=== PATIENT | male | born 1955 | race Caucasian/White ===

== ENCOUNTER 2018-07-02 08:05 | Outpatient (CLI) | payer BC ==
[2018-07-02 08:22] LABS: #Basophils 0.1 thou/uL (0.0-0.2); #Eosinphils 0.3 thou/uL (0.0-0.7); #Lymphocytes 3.1 thou/uL (1.20-3.40); #Monocytes 0.8 thou/uL (0.11-0.59); #Neutrophils 2.7 thou/uL (1.40-6.50); %Basophils 0.7 % (0.0-1.0); %Eosinophils 4.7 % (0.0-10.0); %Lymphocytes 44.7 % (21.0-51.0); %Monocytes 11.1 % (0.0-10.0); %Neutrophils 38.8 % (42.0-75.0); Hemoglobin 14.1 g/dL (14.0-18.0); Mean Corpuscular HGB CONC 32.8 g/dL (32.0-36.0); Mean Corpuscular Hemoglobin 32.1 pg (27.0-31.0); Mean Platelet Volume 8.2 fL (7.4-10.4); Platelet Count 321 thou/uL (130-400); RBC Distribution Width 11.6 % (11.5-14.5); Red Blood Cell (RBC) Count 4.38 mill/uL (4.70-6.10)
[2018-07-02 08:51] LABS: ALT (SGPT) 22 U/L (8-55); AST (SGOT) 21 U/L (5-34); Albumin 4.1 g/dL (3.4-4.8); Alkaline Phosphatase 72 U/L (40-150); Anion Gap 11 mmol/L (10-20); BUN (Urea Nitrogen) 25 mg/dL (8.4-25.7); Bilirubin, Direct 0.2 mg/dL (0.1-0.3); Bilirubin, Total 0.5 mg/dL (0.2-1.2); Calc. Creatinine Clearance 0 mL/min (70-130); Calcium 9.3 mg/dL (7.8-10.44); Carbon Dioxide 26 mmol/L (23-31); Chloride 107 mmol/L (98-107); Estimated GFR-MDRD 47; Glucose 109 mg/dL (80-115); Potassium 4.5 mmol/L (3.5-5.1); Protein, Total 7.6 g/dL (5.8-8.1); Sodium 139 mmol/L (136-145)
[2018-07-02 08:52] LABS: Bilirubin Negative (Negative); Blood, Urine Negative (Negative); Clarity CLEAR (Clear); Glucose, Urine (Dipstick) Negative (Negative); Leukocyte Negative (Negative); Nitrite Negative (Negative); Protein, Urine (Dipstick) Negative (Neg-Trace); Specific Gravity, Urine 1.014 (1.002-1.036); Urobilinogen 0.2 mg/dL (0.2-1.0)
--- NOTE | 2018-07-02 09:12 | RAD ---
CHEST TWO VIEWS: Comparison: 06-12-17 History: Malignant neoplasm of left kidney. FINDINGS: Heart size is upper limits of normal. The aorta is tortuous. There is elevation of the right hemidiap hragm. The lungs are clear of infiltrates. No pulmonary nodules. Surgical clips in the left abdomen a re consistent with left nephrectomy. IMPRESSION: No active intrathoracic disease. No evidence of metastatic disease. Stable chest. POS: [facility]
== END 2018-07-02 08:06 | disposition home or self-care (01) ==
LOC: RAD 08:05
PROVIDERS: ATTEND Urology
DX: Z12.5 Encounter for screening for malignant neoplasm of prostate (principal); C64.2 Malignant neoplasm of left kidney, except renal pelvis; R35.1 Nocturia
CPT/HCPCS: 36415; 71046; 80048; 80076; 81003; 85025; 87086; G0103

== ENCOUNTER 2019-07-11 07:35 | Outpatient (CLI) | payer BC ==
--- NOTE | 2019-07-11 10:04 | RAD ---
TWO VIEWS OF THE CHEST: COMPARISON: 07/02/2018. HISTORY: Malignant neoplasm of the left kidney. FINDINGS: Two views of the chest show normal sized cardiomediastinal silhouette. There is no evidence of consol idation, mass, or pleural effusion. The bones are unremarkable. IMPRESSION: No evidence of acute cardiopulmonary disease. POS: [facility]
--- NOTE | 2019-07-11 11:17 | CT ---
NONCONTRAST CT ABDOMEN AND PELVIS: Date: 07/11/19 HISTORY: History of left renal cancer post nephrectomy. Chronic kidney disease. COMPARISON: 06/12/17. FINDINGS: A 6 mm noncalcified pulmonary nodule is seen in the right lower lobe. This region was not imaged on s tudies of 06/12/17 or 06/15/15. No additional pulmonary nodule or mass is seen at either lung base. Postsurgical changes related to left nephrectomy are again noted. The spleen is also not visualized a nd likely surgically absent. Lack of intravenous contrast does limit sensitivity for evaluation of the parenchymal organs. However , the liver, pancreas, bilateral adrenal glands, right kidney, and urinary bladder demonstrate a karen sly normal nonenhanced CT appearance. No right renal or ureteral calculus is visualized. There is colonic diverticulosis again seen. The appendix is visualized and normal in caliber. Loops o f small bowel are also normal in caliber. No enlarged lymph nodes are seen by CT size criteria. There is no free fluid or fluid collection seen in the abdomen or pelvis. There are postsurgical changes involving the scrotum bilaterally which may be related to prior vasect noble. IMPRESSION: 1. 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 2. Right lower lobe pulmonary nodule. This area was not completely imaged on studies in 2014 or 2016 to evaluate for stability. I am unsure if this is related to a new pulmonary nodule secondary to me tastatic lesion or whether this is a stable finding. Follow-up CT scan of the thorax is recommended. 3. No enlarged lymph nodes are seen in the abdomen or pelvis. CODE T. POS: OFF
== END 2019-07-11 07:36 | disposition home or self-care (01) ==
LOC: BICCT 07:35
PROVIDERS: ATTEND Urology
DX: C64.2 Malignant neoplasm of left kidney, except renal pelvis (principal); Z12.5 Encounter for screening for malignant neoplasm of prostate; N18.9 Chronic kidney disease, unspecified; R91.1 Solitary pulmonary nodule; Z90.5 Acquired absence of kidney; Z90.81 Acquired absence of spleen
CPT/HCPCS: 36415; 71046; 74176; 80053; 81001; 87086; G0103

== ENCOUNTER 2019-07-16 07:37 | Outpatient (CLI) | payer BC ==
--- NOTE | 2019-07-16 09:19 | CT ---
CT CHEST WITHOUT CONTRAST: CLINICAL HISTORY: Pulmonary nodule. Renal malignancy. COMPARISON: Reference made to CT abdomen and pelvis, 07/11/2019. FINDINGS: A 5 mm nodule involving the right lower lobe is present. There is a subtle ground glass opacity. Scat tered areas of atelectasis and/or scar of the pulmonary parenchyma are present. There is no pleural effusion. No pneumothorax. Noncontrast imaging reveals no evidence of pathologic enlargement of the r egional lymph nodes. Mild vascular calcification is present. No acute osseous abnormality. IMPRESSION: 1. 5 mm nodule of the right upper lobe. 2. A subtle ground glass subcentimeter nodular opacity of left upper lobe is also present. Given history of renal malignancy, recommend a 3 month followup to confirm size stability. Transcribed Date/Time: 07/16/2019 9:34 AM
== END 2019-07-16 07:38 | disposition home or self-care (01) ==
LOC: CT 07:37
PROVIDERS: ATTEND Urology
DX: C64.2 Malignant neoplasm of left kidney, except renal pelvis (principal); N18.9 Chronic kidney disease, unspecified; R91.1 Solitary pulmonary nodule; R91.8 Other nonspecific abnormal finding of lung field
CPT/HCPCS: 71250

== ENCOUNTER 2019-10-21 14:32 | Outpatient (CLI) | payer BC ==
--- NOTE | 2019-10-21 15:58 | CT ---
CT OF THE THORAX WITHOUT CONTRAST: INDICATION: Followup pulmonary nodule with a history of renal malignancy. COMPARISON: Prior exam dated 07/26/2019. FINDINGS: Small nodule within the right lower lobe is no longer identified. There is subsegmental volume loss in the right lower lobe. Tiny ground-glass nodular density in the left upper lobe on image 52 of ser ies 3 is stable. No new pulmonary nodule is evident. No definite enlarged lymph node is evident. V isualized upper abdomen demonstrates postsurgical change of a left nephrectomy. No acute osseous abn ormality is evident. There is scattered degenerative and osteoarthritic change. IMPRESSION: 1. Resolution of the previously seen right upper lobe pulmonary nodule likely reflective of an infla mmatory nodule. 2. Stable tiny ground-glass nodule in the left upper lobe. Followup examination in 6-12 months is r ecommended to document stability. 3. Left nephrectomy. POS: [facility]
== END 2019-10-21 14:33 | disposition home or self-care (01) ==
LOC: BICCT 14:32
PROVIDERS: ATTEND Urology
DX: R91.8 Other nonspecific abnormal finding of lung field (principal); N18.9 Chronic kidney disease, unspecified; Z90.5 Acquired absence of kidney
CPT/HCPCS: 71250

== ENCOUNTER 2020-07-12 15:38 | Outpatient (CLI) | payer BC ==
--- NOTE | 2020-07-12 16:11 | CT ---
CT CHEST WITHOUT CONTRAST CLINICAL INDICATION: Patient with left renal cancer. Follow-up of pulmonary nodule. COMPARISON: 10/21/2019 FINDINGS: Coronary arteries. Aorta: Minimal vascular calcifications in the aortic arch. Lungs: A very tiny linear and nodular density is again seen in the peripheral aspect of the left uppe r lobe (image 46, series 3) which is unchanged compared to prior exam and also unchanged compared to study on 07/16/2019. This could represent area of mild scarring. No additional pulmonary nodule or mass is seen in the lungs bilaterally. Again the previously seen pulmonary nodule in the right lower lobe on study in 2019 is not visualized. Mediastinum: Limited evaluation due to lack of intravenous contrast, but no enlarged lymph nodes are seen by CT size criteria. Minimal vascular calcifications are seen in the coronary arteries. Thyroid gland: Normal nonenhanced CT appearance. Osseous structures: Degenerative changes are seen in the spine. No suspicious lytic or sclerotic osse ous lesions are identified. Chest wall: No abnormality visualized. Upper abdomen: Again noted are postoperative changes related to left nephrectomy IMPRESSION: 1. Stable tiny linear and nodular density left upper lobe. This could potentially represent area of m ild scarring. This is unchanged dating back to study on 07/16/2019. An additional follow-up in one year is recommended. 2. No new pulmonary nodule or mass is seen in the lungs bilaterally. 3. Evidence of left nephrectomy.
== END 2020-07-12 15:39 | disposition home or self-care (01) ==
LOC: BICCT 15:38
PROVIDERS: ATTEND Urology
DX: C64.2 Malignant neoplasm of left kidney, except renal pelvis (principal); R91.1 Solitary pulmonary nodule; J98.4 Other disorders of lung; Z90.5 Acquired absence of kidney
CPT/HCPCS: 71250

== ENCOUNTER 2020-08-20 06:20 | Outpatient (CLI) | payer BC ==
[2020-08-20 11:18] LABS: Hemoglobin 14.6 g/dL (14.0-18.0); Mean Corpuscular Hemoglobin 32.4 PG (27.0-33.0); Mean Corpuscular Volume 95.3 fl (80.0-100.0); Mean Platelet Volume 11.6 fl (7.4-10.4); Platelet Count 320 10x3/uL (130-400); RBC Distribution Width 12.7 % (11.5-14.5); Red Blood Cell (RBC) Count 4.51 10x6/uL (4.40-5.80); White Blood Cell (WBC) Count 7.7 10x3/uL (4.5-11.0)
[2020-08-20 11:37] LABS: Anion Gap 11 mmol/L (10-20); BUN (Urea Nitrogen) 19 mg/dL (8.4-25.7); Calc. Creatinine Clearance 0 mL/min (70-130); Calcium 9.3 mg/dL (7.8-10.44); Carbon Dioxide 27 mmol/L (23-31); Chloride 106 mmol/L (98-107); Estimated GFR-MDRD 54; Glucose 87 mg/dL (80-115); Potassium 4.7 mmol/L (3.5-5.1); Sodium 139 mmol/L (136-145)
[2020-08-20 11:38] LABS: INR-International Normal Ratio 0.9; PTT 27.3 sec (22.0-33.0)
[2020-08-20 22:09] LABS: SARS-CoV-2 MS2 Positive; SARS-CoV-2 N Gene Negative; SARS-CoV-2 S Gene Negative; SARS-CoV-2 by NAA Not Detected (NotDetected); SARS-CoV-2 orf1ab Negative
--- NOTE | 2020-08-24 06:57 | EKG ---
Test Reason : Blood Pressure : / mmHG Vent. Rate : 066 BPM Atrial Rate : 066 BPM P-R Int : 160 ms QRS Dur : 090 ms QT Int : 380 ms P-R-T Axes : 048 009 034 degrees QTc Int : 398 ms Normal sinus rhythm Normal ECG No previous ECGs available Confirmed by DALE BANGURA MD ([id number]) on 08/24/2020 6:56:49 AM Referred By: ALAINA Confirmed By:DALE BANGURA MD
== END 2020-08-20 06:21 | disposition home or self-care (01) ==
LOC: LABBT 06:20
PROVIDERS: ATTEND Urology
DX: Z01.818 Encounter for other preprocedural examination (principal); Z12.5 Encounter for screening for malignant neoplasm of prostate; C64.2 Malignant neoplasm of left kidney, except renal pelvis; N40.1 Benign prostatic hyperplasia with lower urinary tract symptoms; R35.1 Nocturia; N18.9 Chronic kidney disease, unspecified; R91.1 Solitary pulmonary nodule; N47.1 Phimosis; Z20.828 Contact with and (suspected) exposure to other viral communicable diseases
CPT/HCPCS: 80048; 85027; 85610; 85730; 87635; 93005; 93010; U0003

== ENCOUNTER 2020-08-25 06:17 | Day surgery (SDC) | payer BC ==
[2020-08-24 10:51] VITALS: BMI 27.6
[2020-08-25] MEDS ORDERED: Bacitracin Zinc Ointment 30 gm TUBE ONE (07:02)
[2020-08-25] MEDS ORDERED: Levofloxacin 500 mg/D5W 100 ml Premix Bag ONE (07:04)
[2020-08-25] MEDS ORDERED: Midazolam HCl 2 mg/2 ml Vial ONE (08:08)
[2020-08-25] MEDS ORDERED: Fentanyl 100 MCG/2 ML VIAL ONE ×2 (08:09→10:18)
[2020-08-25] MEDS ORDERED: Bupivacaine 0.25% HCL 30 ML VIAL ONE (09:10)
[2020-08-25] MEDS ORDERED: Phenazopyridine HCl 100 MG TAB ONE (10:06)
[2020-08-25] MEDS ORDERED: hydrALAZINE 20 MG/ML VIAL ONE (10:29)
[2020-08-25] MEDS ORDERED: Ondansetron PF 4 MG/2 ML Vial ONE (10:37)
[2020-08-25] MEDS ORDERED: Dexamethasone 20 MG/5 ML VIAL ONE (10:37)
[2020-08-25] MEDS ORDERED: PROPOFOL 200 MG/20 ML VIAL ONE (10:37)
--- NOTE | 2020-08-26 13:03 | OP ---
DATE OF PROCEDURE: 08/25/2020 PREOPERATIVE DIAGNOSES: 1. A 64-year-old male with history of benign prostatic hyperplasia. 2. History of severe phimosis. POSTOPERATIVE DIAGNOSES: 1. A 64-year-old male with history of benign prostatic hyperplasia. 2. History of severe phimosis. PROCEDURES PERFORMED: 1. Cystoscopy. 2. UroLift implant x 8 3. Circumcision. ANESTHESIA: LMA. COMPLICATIONS: None apparent. ESTIMATED BLOOD LOSS: Minimal. INDICATIONS FOR PROCEDURE AND HISTORY: Mr. Camacho is a pleasant 64-year-old male, whom I have known for numerous years as he underwent left nephrectomy for renal cell carcinoma, who was in remission. He subsequently was found to have progressive BPH symptoms and severe phimosis and presents today for above intervention. Risks and complications of the procedure were reviewed with him in detail including, but not limited to, bleeding, pain, infection, injury to adjacent organs, wound complication, possible migration of implant requiring further surgical intervention, incrustation, urolithiasis, more definitive options of TURP discussed. He desired to proceed with UroLift and circumcision. DESCRIPTION OF PROCEDURE: After an informed consent was signed, the patient was taken to the operating room, placed in a dorsal lithotomy position with the genital area prepped and draped in the usual surgical sterile fashion. A 21-Croatian cystoscope was utilized for cystoscopy, which demonstrated normal bladder mucosa. He does have trabeculation, consistent with chronic outlet obstruction and [id number] hyperplasia of the prostate was noted. At this time, we transitioned to the UroLift device with a visual obturator. Subsequently, we placed 3 implants on the left lateral lobe, 3 on the right lobe, which resolved his lateral obstructing lobes. With resolution of his lateral obstructing lobes, he did have an occult visualization of a small median lobe that was protruding. We were able to treat this median lobe component with 7th implant placed and this created a nice anterior channel with wide bladder neck. The urethral tab was somewhat close to the bladder neck, however, not within the bladder itself and this demonstrated no urethral tab visible at the level of the bladder neck of concern at this time. One did misfire. He has a total of 7 implants in situ, with one misfired. Incidentally noted is small bulbar urethral stricture, which does not warrant treatment. We then transitioned to a supine position and proceeded to perform the circumcision. He had severe phimosis with some difficulty retracting the foreskin and had dense adhesions of the coronal sulcus. This was reduced manually. The foreskin was incised at the level of the coronal sulcus with 11 blade and subsequently completely divided with electrocautery. Good hemostasis of the dartos fascia was obtained using 2-0 and 3-0 chromic interrupted sutures. We reapproximated the skin. Pressure dressing was applied and he tolerated the procedure well. An 18-Croatian Peck catheter was placed and transitioned to the recovery room for a voiding trial if urine output demonstrates no significant hematuria of concern. He tolerated the procedure well and transported to the recovery room in stable condition. Job ID: [id number] [facility]
--- NOTE | 2020-08-27 14:18 | OP ---
DATE OF PROCEDURE: 08/25/2020 PREOPERATIVE DIAGNOSES: 1. A 64-year-old male, status post left nephrectomy, history of renal-cell carcinoma, in remission. 2. BPH with incomplete emptying, IPSS score of 24. 3. Severe phimosis. POSTOPERATIVE DIAGNOSES: 1. A 64-year-old male, status post left nephrectomy, history of renal-cell carcinoma, in remission. 2. BPH with incomplete emptying, IPSS score of 24. 3. Severe phimosis. PROCEDURES PERFORMED: 1. Cystoscopy. 2. UroLift implant x8. 3. Circumcision. ANESTHESIA: LMA. COMPLICATIONS: None apparent. DISPOSITION: Recovery room in stable condition. SPECIMEN: Foreskin for permanent. INDICATIONS FOR PROCEDURE AND HISTORY: Mr. Camacho is a 64-year-old male, well known to me, in which I performed a left radical nephrectomy in the past. His kidney cancer is in remission. He does have , on follow up, severe phimosis, and ongoing BPH symptoms with severe IPSS score of 24. He underwent appropriate workup, desired to proceed with UroLift. We did discuss options of TURP, risks and complications of each modality reviewed and he desired less invasive approach. Risks and complications of UroLift reviewed with the patient in detail including, but not limited to, bleeding, pain, infection, injury to adjacent organs such as ureters, vasculature, neurovascular content, possible migration or dislodgement of implant resulting in calcification warranting further removal, more definitive TURP escalation discussed with him in detail. All questions were answered to his satisfaction and desired to proceed. Options of medical observation reviewed, which he desired to proceed with surgical intervention. DESCRIPTION OF PROCEDURE: After an informed consent was signed, the patient was taken to the operating room, placed in a dorsal lithotomy position with the genital area prepped and draped in the usual surgical sterile fashion. A 21-Australian cystoscope with a visual obturator with a UroLift device was placed. We surveyed the urethra, which demonstrated early bulbar urethral stricture, which did not warrant treatment. It was wide caliber about 16-Australian caliber and I was easily able to maneuver this proximally atraumatically. The prostatic urethra was staged, which demonstrated bilobar hyperplasia of the prostate, moderate to severe obstruction. He does have component of an early median lobe that is not obviously within the intravesical component. The UOs are well away from the bladder neck and diffuse trabeculation is noted. At this time, we then transitioned to the UroLift device and total of 3 on the left lateral lobe and total of 3 on the right lateral lobe were placed. We did create an anterior channel for him with the resolution of the lateral lobe component, there was a component of the high median bar, with early median lobe protruding. We staged the median lobe component and it appeared to be amenable to treatment with UroLift. The first implant in the median lobe misfired. Therefore, we re-engaged with another implant and this was able to be successfully reducing the median lobe component creating a nice anterior bladder neck channel and open bladder neck. The median lobe reduction tab was somewhat close to the bladder neck, however, it was not within the mucosa of the bladder. Intraoperative photos were taken and an 18-Australian Peck catheter was placed with 30 mL insufflated with clear pink-tinged urine. We subsequently then repositioned him in a supine position and formally prepped and draped his penis. The foreskin was very adherent and difficulty retracting. There was glandular adhesion noted. After he was formally prepped and draped, I did reduce his glandular adhesions, which were very adherent at the level of the coronal sulcus. A circumscribing incision was made at the level of the coronal sulcus and the ring of foreskin was divided with electrocautery and 15 blade. Good hemostasis was obtained throughout with the dartos fascia and the skin was closed with 2-0 and 3-0 chromic in an interrupted fashion. A 0.25% Marcaine 10 mL was infiltrated for penile block and sterile pressure dressing is applied and he tolerated the procedure well. We will watch him for degree of hematuria. If urine is relatively clear, we will discharge the patient without indwelling Peck catheter. Job ID: [id number] [facility]
== END 2020-08-25 15:45 | disposition home or self-care (01) ==
LOC: SDC 06:17
PROVIDERS: ATTEND Urology
PROC: 0VTTXZZ Resection of Prepuce, External Approach (ICD-10-PCS; principal; 2020-08-25)
PROC: 0T7D8DZ Dilation of Urethra with Intraluminal Device, Via Natural or Artificial Opening Endoscopic (ICD-10-PCS; principal; 2020-08-25)
DX: N47.1 Phimosis (principal); N40.1 Benign prostatic hyperplasia with lower urinary tract symptoms; R39.14 Feeling of incomplete bladder emptying; R35.1 Nocturia; I12.9 Hypertensive chronic kidney disease with stage 1 through stage 4 chronic kidney disease, or unspecified chronic kidney disease; N18.9 Chronic kidney disease, unspecified; E78.5 Hyperlipidemia, unspecified; F32.5 Major depressive disorder, single episode, in full remission; M19.90 Unspecified osteoarthritis, unspecified site; Z79.899 Other long term (current) drug therapy
CPT/HCPCS: 88304; C1889; J0360; J1100; J1956; J2250; J2405; J2704; J3010; S0020

== ENCOUNTER 2021-04-01 19:31 | Inpatient (IN) | payer MEDICARE, BC ==
[2021-04-01 20:17] LABS: #Lymphocytes 2.6 thou/uL (1.20-3.40); #Monocytes 1.6 thou/uL (0.11-0.59); #Neutrophils 6.8 thou/uL (1.40-6.50); %Basophils 0.2 % (0.0-1.0); %Eosinophils 0.3 % (0.0-10.0); %Lymphocytes 23.4 % (21.0-51.0); %Monocytes 14.2 % (0.0-10.0); %Neutrophils 61.9 % (42.0-75.0); Hemoglobin 13.6 g/dL (14.0-18.0); Mean Corpuscular HGB CONC 35.1 g/dL (32.0-36.0); Mean Corpuscular Hemoglobin 34.1 pg (27.0-31.0); Mean Platelet Volume 8.6 fL (7.4-10.4); Platelet Count 256 thou/uL (130-400); RBC Distribution Width 11.8 % (11.5-14.5)
[2021-04-01] MEDS ORDERED: Cefepime 2 GM VIAL ONE (20:36)
[2021-04-01] MEDS ORDERED: Vancomycin 1 GM/200 ML BAG ONE (20:36)
[2021-04-01 20:38] LABS: ALT (SGPT) 44 U/L (8-55); AST (SGOT) 46 U/L (5-34); Albumin 3.9 g/dL (3.4-4.8); Alkaline Phosphatase 84 U/L (40-110); Anion Gap 11 mmol/L (10-20); BUN (Urea Nitrogen) 20 mg/dL (8.4-25.7); Bilirubin, Total 0.3 mg/dL (0.2-1.2); Calc. Creatinine Clearance 0 mL/min (70-130); Calcium 9.1 mg/dL (7.8-10.44); Carbon Dioxide 26 mmol/L (23-31); Chloride 102 mmol/L (98-107); Globulin 3.7 g/dL (2.4-3.5); Glucose 114 mg/dL (80-115); Potassium 4.6 mmol/L (3.5-5.1); Protein, Total 7.6 g/dL (5.8-8.1); Sodium 134 mmol/L (136-145)
[2021-04-01] MEDS ORDERED: VANCOMYCIN 2 GRAM/400 ML BAG 2 GM in Premix Bag 1 BAG IVPB SCH (21:30)
[2021-04-01 21:37] LABS: Bacteria/HPF None Seen HPF (None Seen); Bilirubin Negative (Negative); Blood, Urine 1+ (Negative); Clarity Clear (Clear); Glucose, Urine (Dipstick) Normal (Negative); Ketone, Urine Negative (Negative); Leukocyte Negative Leu/uL (Negative); Nitrite Negative (Negative); Protein, Urine (Dipstick) 10 mg/dL (Neg-Trace); RBC/HPF 0-3 HPF (0-3); Specific Gravity, Urine 1.017 (1.002-1.036); Squamous Epithelial None Seen HPF (0-3); Urobilinogen Normal mg/dL (Less than 2); WBC/HPF 0-3 HPF (0-3)
[2021-04-01 22:31] LABS: SARS-CoV-2 NAA Rapid Test Not Detected (NotDetected)
[2021-04-02] MEDS ORDERED: Ondansetron PF 4 MG/2 ML Vial IVP PRN (00:30)
[2021-04-02] MEDS ORDERED: Ondansetron ODT 4 MG TAB SL PRN (00:30)
[2021-04-02] MEDS: Acetaminophen 325 MG TAB PO PRN ×5 (00:46→20:15)
[2021-04-02 01:20] VITALS: BMI 27.5
[2021-04-02] MEDS: Sodium Chloride 0.9% 1,000 ML IV SCH ×2 (05:28→15:06)
[2021-04-02 05:44] LABS: #Lymphocytes 3.2 thou/uL (1.20-3.40); #Monocytes 1.4 thou/uL (0.11-0.59); #Neutrophils 6.5 thou/uL (1.40-6.50); %Eosinophils 0.3 % (0.0-10.0); %Lymphocytes 28.5 % (21.0-51.0); %Monocytes 12.7 % (0.0-10.0); %Neutrophils 58.6 % (42.0-75.0); Hemoglobin 13.2 g/dL (14.0-18.0); Mean Corpuscular HGB CONC 33.7 g/dL (32.0-36.0); Mean Corpuscular Hemoglobin 32.9 pg (27.0-31.0); Mean Corpuscular Volume 97.4 fL (78.0-98.0); Mean Platelet Volume 8.5 fL (7.4-10.4); Platelet Count 247 thou/uL (130-400); RBC Distribution Width 11.8 % (11.5-14.5); Red Blood Cell (RBC) Count 4.01 mill/uL (4.70-6.10); White Blood Cell (WBC) Count 11.1 thou/uL (4.8-10.8)
[2021-04-02 06:06] LABS: Anion Gap 12 mmol/L (10-20); BUN (Urea Nitrogen) 17 mg/dL (8.4-25.7); Calc. Creatinine Clearance 58 mL/min (70-130); Calcium 8.6 mg/dL (7.8-10.44); Carbon Dioxide 21 mmol/L (23-31); Chloride 106 mmol/L (98-107); Glucose 113 mg/dL (80-115); Potassium 4.4 mmol/L (3.5-5.1); Sodium 135 mmol/L (136-145)
[2021-04-02] MEDS: Cefepime 2 GM in Sodium Chloride 0.9% 100 ML IVPB SCH ×2 (09:59→20:56)
[2021-04-02] MEDS ORDERED: NIFEdipine XL 30 MG TAB PO SCH (12:30)
[2021-04-02] MEDS ORDERED: Lisinopril 2.5 MG TAB PO SCH (12:30)
[2021-04-02] MEDS ORDERED: Calcitriol 0.25 MCG CAP PO SCH (12:30)
[2021-04-02] MEDS ORDERED: Citalopram 20 MG TAB PO SCH (12:30)
[2021-04-02] MEDS: Simvastatin 10 MG TAB PO SCH (20:58)
[2021-04-02] MEDS: Vancomycin 1.5 GRAM/300 ML BAG 1.5 GM in Premix Bag 1 BAG IVPB SCH (22:06)
[2021-04-03] MEDS: Sodium Chloride 0.9% 1,000 ML IV SCH ×3 (03:04→20:38)
[2021-04-03] MEDS: Acetaminophen 325 MG TAB PO PRN ×4 (03:48→20:37)
[2021-04-03] MEDS ORDERED: Ondansetron PF 4 MG/2 ML Vial IVP PRN (03:50)
[2021-04-03 06:25] LABS: #Lymphocytes 1.6 thou/uL (1.20-3.40); #Monocytes 1.1 thou/uL (0.11-0.59); #Neutrophils 7.6 thou/uL (1.40-6.50); %Basophils 0.3 % (0.0-1.0); %Eosinophils 0.1 % (0.0-10.0); %Lymphocytes 15.6 % (21.0-51.0); %Monocytes 10.2 % (0.0-10.0); %Neutrophils 73.8 % (42.0-75.0); Mean Corpuscular HGB CONC 35.5 g/dL (32.0-36.0); Mean Corpuscular Hemoglobin 34.3 pg (27.0-31.0); Mean Corpuscular Volume 96.6 fL (78.0-98.0); Mean Platelet Volume 8.6 fL (7.4-10.4); Platelet Count 215 thou/uL (130-400); RBC Distribution Width 11.8 % (11.5-14.5); Red Blood Cell (RBC) Count 3.79 mill/uL (4.70-6.10); White Blood Cell (WBC) Count 10.3 thou/uL (4.8-10.8)
[2021-04-03 06:48] LABS: Anion Gap 12 mmol/L (10-20); BUN (Urea Nitrogen) 13 mg/dL (8.4-25.7); Calc. Creatinine Clearance 72 mL/min (70-130); Calcium 8.4 mg/dL (7.8-10.44); Carbon Dioxide 19 mmol/L (23-31); Chloride 105 mmol/L (98-107); Glucose 114 mg/dL (80-115); Sodium 132 mmol/L (136-145)
[2021-04-03] MEDS: NIFEdipine XL 30 MG TAB PO SCH (08:42)
[2021-04-03] MEDS: Lisinopril 2.5 MG TAB PO SCH (08:43)
[2021-04-03] MEDS: Citalopram 20 MG TAB PO SCH (08:43)
[2021-04-03] MEDS: Calcitriol 0.25 MCG CAP PO SCH (08:43)
[2021-04-03] MEDS: Cefepime 2 GM in Sodium Chloride 0.9% 100 ML IVPB SCH ×2 (08:48→20:38)
[2021-04-03] MEDS ORDERED: Fioricet 325/50/40 mg Tablet PO PRN (13:02)
[2021-04-03] MEDS: Simvastatin 10 MG TAB PO SCH (20:37)
[2021-04-03 21:40] LABS: Vancomycin, Trough 6.9 ug/mL
[2021-04-03] MEDS ORDERED: VANCOMYCIN 1.25 GM/250 ML BAG 1.25 GM in Premix Bag 1 BAG IVPB SCH (22:15)
[2021-04-03] MEDS: Vancomycin 1.5 GRAM/300 ML BAG 1.5 GM in Premix Bag 1 BAG IVPB SCH (22:55)
[2021-04-04] MEDS: Acetaminophen 325 MG TAB PO PRN ×4 (03:41→21:59)
[2021-04-04] MEDS: Sodium Chloride 0.9% 1,000 ML IV SCH (08:11)
[2021-04-04] MEDS: NIFEdipine XL 30 MG TAB PO SCH (08:12)
[2021-04-04] MEDS: Lisinopril 2.5 MG TAB PO SCH (08:12)
[2021-04-04] MEDS: Citalopram 20 MG TAB PO SCH (08:13)
[2021-04-04] MEDS: Calcitriol 0.25 MCG CAP PO SCH (08:13)
[2021-04-04] MEDS: VANCOMYCIN 1.25 GM/250 ML BAG 1.25 GM in Premix Bag 1 BAG IVPB SCH ×2 (09:14→22:48)
[2021-04-04 09:42] LABS: Hemoglobin 12.9 g/dL (14.0-18.0); Mean Corpuscular HGB CONC 33.1 g/dL (32.0-36.0); Mean Corpuscular Volume 96.6 fL (78.0-98.0); Mean Platelet Volume 9.3 fL (7.4-10.4); Platelet Count 204 thou/uL (130-400); RBC Distribution Width 11.9 % (11.5-14.5); Red Blood Cell (RBC) Count 4.02 mill/uL (4.70-6.10); White Blood Cell (WBC) Count 12.7 thou/uL (4.8-10.8)
[2021-04-04 09:59] LABS: Anion Gap 15 mmol/L (10-20); BUN (Urea Nitrogen) 17 mg/dL (8.4-25.7); CRP (Inflammatory) 6.61 mg/dL (= or < 0.5); Calc. Creatinine Clearance 74 mL/min (70-130); Calcium 8.3 mg/dL (7.8-10.44); Carbon Dioxide 19 mmol/L (23-31); Chloride 98 mmol/L (98-107); Glucose 145 mg/dL (80-115); Potassium 3.9 mmol/L (3.5-5.1); Sodium 128 mmol/L (136-145)
[2021-04-04 11:02] LABS: Band 6 % (5-11); Lymphocytes 10 % (21-51); MDiff Complete? YES; Monocytes 6 % (0-10); Neutrophil 71 % (42-75); Polychromasia SLIGHT = 2-3 cells (100X) (0-2/hpf); Reactive Lymphocytes 7 % (0-10)
[2021-04-04] MEDS ORDERED: Meropenem 1 GM in Sodium Chloride 0.9% 100 ML IVPB SCH (14:00)
[2021-04-04] MEDS ORDERED: MEROPENEM 1 GM/50 ML 1 GM in Premix Bag 1 BAG IVPB SCH (14:00)
[2021-04-04] MEDS: hydrALAZINE 25 MG TAB PO SCH ×2 (14:40→21:50)
[2021-04-04] MEDS ORDERED: Azithromycin 250 MG TAB PO SCH (18:45)
[2021-04-04] MEDS ORDERED: Ibuprofen 200 MG TAB PO PRN (19:16)
[2021-04-04] MEDS ORDERED: Bupivacaine PF 0.5% 30 ML VIAL ONE (19:41)
[2021-04-04] MEDS ORDERED: Bacitracin Zinc Ointment 30 gm TUBE ONE (19:42)
[2021-04-04] MEDS ORDERED: Neomycin-Polymyxin 1 ML AMP ONE (19:42)
[2021-04-04] MEDS ORDERED: Thrombin 5000 UNITS/5 ML VIAL ONE (19:42)
[2021-04-04] MEDS ORDERED: Promethazine HCl 25 MG/ML VIAL IM PRN (20:10)
[2021-04-04] MEDS ORDERED: Meperidine HCl/PF 25 MG/ML VIAL SLOW IVP PRN (20:10)
[2021-04-04] MEDS ORDERED: Promethazine HCl 25 MG/ML VIAL IVPB PRN (20:10)
[2021-04-04] MEDS ORDERED: Ondansetron HCl/PF 4 MG/2 ML Vial IVP PRN (20:10)
[2021-04-04] MEDS ORDERED: Fentanyl 100 MCG/2 ML VIAL ONE (20:13)
[2021-04-04] MEDS: Simvastatin 10 MG TAB PO SCH (21:51)
[2021-04-04] MEDS: MEROPENEM 1 GM/50 ML 1 GM in Premix Bag 1 BAG IVPB SCH (21:55)
[2021-04-05] MEDS ORDERED: Dexamethasone 20 MG/5 ML VIAL ONE (00:26)
[2021-04-05] MEDS ORDERED: PROPOFOL 200 MG/20 ML VIAL ONE (00:26)
[2021-04-05] MEDS ORDERED: Ondansetron PF 4 MG/2 ML Vial ONE (00:26)
[2021-04-05] MEDS ORDERED: Lidocaine 1% PF 5 ML VIAL ONE (00:26)
[2021-04-05] MEDS ORDERED: PHENYLEPHRINE-NS 100 MCG/ML 10 ML SYRINGE ONE (00:26)
[2021-04-05] MEDS ORDERED: Albuterol Sulfate 1.25 MG/3 ML NEB ONE (01:34)
[2021-04-05] MEDS ORDERED: Albuterol Sulfate 2.5 mg/3 ml Neb NEB PRN (01:41)
[2021-04-05] MEDS: MEROPENEM 1 GM/50 ML 1 GM in Premix Bag 1 BAG IVPB SCH ×3 (05:36→21:02)
[2021-04-05 06:40] LABS: Anion Gap 14 mmol/L (10-20); BUN (Urea Nitrogen) 21 mg/dL (8.4-25.7); Calc. Creatinine Clearance 76 mL/min (70-130); Calcium 8.6 mg/dL (7.8-10.44); Carbon Dioxide 21 mmol/L (23-31); Chloride 100 mmol/L (98-107); Glucose 149 mg/dL (80-115); Potassium 3.9 mmol/L (3.5-5.1); Sodium 131 mmol/L (136-145)
[2021-04-05 06:47] LABS: Hemoglobin 13.1 g/dL (14.0-18.0); Mean Corpuscular HGB CONC 34.4 g/dL (32.0-36.0); Mean Corpuscular Hemoglobin 33.3 pg (27.0-31.0); Mean Corpuscular Volume 96.9 fL (78.0-98.0); Mean Platelet Volume 9.5 fL (7.4-10.4); Platelet Count 230 thou/uL (130-400); RBC Distribution Width 12.1 % (11.5-14.5); Red Blood Cell (RBC) Count 3.92 mill/uL (4.70-6.10); White Blood Cell (WBC) Count 13.8 thou/uL (4.8-10.8)
[2021-04-05 08:17] LABS: Band 15 % (5-11); Burr Cells SLIGHT = 2-5 cells (100X) (0-1/hpf); Lymphocytes 9 % (21-51); MDiff Complete? YES; Monocytes 3 % (0-10); Neutrophil 73 % (42-75); Platelet Morphology Comment Appears Adequate; Polychromasia SLIGHT = 2-3 cells (100X) (0-2/hpf)
[2021-04-05] MEDS: Lisinopril 2.5 MG TAB PO SCH (08:48)
[2021-04-05] MEDS: hydrALAZINE 25 MG TAB PO SCH ×3 (08:48→21:00)
[2021-04-05] MEDS: Calcitriol 0.25 MCG CAP PO SCH (08:49)
[2021-04-05] MEDS: NIFEdipine XL 30 MG TAB PO SCH (08:49)
[2021-04-05] MEDS: Citalopram 20 MG TAB PO SCH (08:49)
[2021-04-05 09:21] LABS: Vancomycin, Trough 16.7 ug/mL
[2021-04-05 10:44] LABS: #Lymphocytes 1.2 thou/uL (1.20-3.40); #Neutrophils 11.4 thou/uL (1.40-6.50); %Basophils 0.1 % (0.0-1.0); %Eosinophils 0.1 % (0.0-10.0); %Lymphocytes 8.8 % (21.0-51.0); %Monocytes 7.3 % (0.0-10.0); %Neutrophils 83.7 % (42.0-75.0); Hemoglobin 12.9 g/dL (14.0-18.0); Mean Corpuscular HGB CONC 33.7 g/dL (32.0-36.0); Mean Corpuscular Hemoglobin 32.8 pg (27.0-31.0); Mean Corpuscular Volume 97.2 fL (78.0-98.0); Mean Platelet Volume 10.1 fL (7.4-10.4); Platelet Count 238 thou/uL (130-400); RBC Distribution Width 12.3 % (11.5-14.5); Red Blood Cell (RBC) Count 3.93 mill/uL (4.70-6.10); White Blood Cell (WBC) Count 13.7 thou/uL (4.8-10.8)
[2021-04-05] MEDS: VANCOMYCIN 1.25 GM/250 ML BAG 1.25 GM in Premix Bag 1 BAG IVPB SCH ×2 (11:08→22:43)
[2021-04-05] MEDS: Acetaminophen 325 MG TAB PO PRN (17:00)
[2021-04-05] MEDS: Simvastatin 10 MG TAB PO SCH (21:00)
[2021-04-06] MEDS: Acetaminophen 325 MG TAB PO PRN ×4 (03:02→21:15)
[2021-04-06] MEDS: MEROPENEM 1 GM/50 ML 1 GM in Premix Bag 1 BAG IVPB SCH ×3 (06:22→21:15)
[2021-04-06 08:24] LABS: Anion Gap 13 mmol/L (10-20); BUN (Urea Nitrogen) 22 mg/dL (8.4-25.7); Calc. Creatinine Clearance 85 mL/min (70-130); Calcium 8.5 mg/dL (7.8-10.44); Carbon Dioxide 20 mmol/L (23-31); Chloride 102 mmol/L (98-107); Glucose 105 mg/dL (80-115); Potassium 3.7 mmol/L (3.5-5.1); Sodium 131 mmol/L (136-145)
[2021-04-06] MEDS: NIFEdipine XL 30 MG TAB PO SCH (08:41)
[2021-04-06] MEDS: Calcitriol 0.25 MCG CAP PO SCH (08:42)
[2021-04-06] MEDS: hydrALAZINE 25 MG TAB PO SCH ×3 (08:42→21:14)
[2021-04-06] MEDS: Citalopram 20 MG TAB PO SCH (08:43)
[2021-04-06] MEDS: Lisinopril 2.5 MG TAB PO SCH (08:43)
[2021-04-06 09:48] LABS: Band 7 % (5-11); Burr Cells SLIGHT = 2-5 cells (100X) (0-1/hpf); Hemoglobin 13.1 g/dL (14.0-18.0); Lymphocytes 10 % (21-51); MDiff Complete? YES; Mean Corpuscular HGB CONC 34.4 g/dL (32.0-36.0); Mean Corpuscular Hemoglobin 33.3 pg (27.0-31.0); Mean Corpuscular Volume 96.7 fL (78.0-98.0); Monocytes 6 % (0-10); Neutrophil 72 % (42-75); Platelet Count 288 thou/uL (130-400); Platelet Morphology Comment Appears Adequate; Polychromasia SLIGHT = 2-3 cells (100X) (0-2/hpf); RBC Distribution Width 12.3 % (11.5-14.5); RBC Morphology Normal; Reactive Lymphocytes 5 % (0-10); Red Blood Cell (RBC) Count 3.93 mill/uL (4.70-6.10); White Blood Cell (WBC) Count 13.7 thou/uL (4.8-10.8)
[2021-04-06] MEDS: VANCOMYCIN 1.25 GM/250 ML BAG 1.25 GM in Premix Bag 1 BAG IVPB SCH ×2 (10:04→22:30)
[2021-04-06] MEDS: Simvastatin 10 MG TAB PO SCH (21:14)
[2021-04-07] MEDS: Acetaminophen 325 MG TAB PO PRN ×3 (02:31→14:38)
[2021-04-07] MEDS: MEROPENEM 1 GM/50 ML 1 GM in Premix Bag 1 BAG IVPB SCH ×2 (05:15→14:32)
[2021-04-07 06:23] LABS: Band 4 % (5-11); Hemoglobin 12.5 g/dL (14.0-18.0); Lymphocytes 23 % (21-51); MDiff Complete? YES; Mean Corpuscular HGB CONC 35.6 g/dL (32.0-36.0); Mean Corpuscular Hemoglobin 34.2 pg (27.0-31.0); Mean Corpuscular Volume 95.9 fL (78.0-98.0); Mean Platelet Volume 8.9 fL (7.4-10.4); Monocytes 12 % (0-10); Neutrophil 59 % (42-75); Platelet Count 318 thou/uL (130-400); Platelet Morphology Comment Appears Adequate; RBC Distribution Width 12.2 % (11.5-14.5); Reactive Lymphocytes 2 % (0-10); Red Blood Cell (RBC) Count 3.64 mill/uL (4.70-6.10); White Blood Cell (WBC) Count 11.2 thou/uL (4.8-10.8)
[2021-04-07 06:35] LABS: Anion Gap 11 mmol/L (10-20); BUN (Urea Nitrogen) 18 mg/dL (8.4-25.7); Calc. Creatinine Clearance 94 mL/min (70-130); Carbon Dioxide 21 mmol/L (23-31); Chloride 102 mmol/L (98-107); Glucose 120 mg/dL (80-115); Potassium 3.4 mmol/L (3.5-5.1); Sodium 131 mmol/L (136-145)
[2021-04-07] MEDS: Citalopram 20 MG TAB PO SCH (08:42)
[2021-04-07] MEDS: NIFEdipine XL 30 MG TAB PO SCH (08:42)
[2021-04-07] MEDS: hydrALAZINE 25 MG TAB PO SCH ×2 (08:42→14:32)
[2021-04-07] MEDS: Lisinopril 2.5 MG TAB PO SCH (08:42)
[2021-04-07] MEDS: Calcitriol 0.25 MCG CAP PO SCH (08:43)
[2021-04-07] MEDS: VANCOMYCIN 1.25 GM/250 ML BAG 1.25 GM in Premix Bag 1 BAG IVPB SCH (09:17)
[2021-04-07 11:16] LABS: ANA Symphony (Qualitative) Negative (Negative); ANA Symphony (Quantitative) 0.2 Ratio (< 0.7 Negative); dsDNA IgG Antibody 2.2 IU/mL (<10 Negative)
[2021-04-07 11:48] LABS: CCP IgG Antibody 0.8 EliAU/mL (<7 Negative); EliA RAS New Method **** NEW METHOD ****; Rheumatoid Factor IgA Antibody Less than 0.6 IU/mL (<14 Negative)
[2021-04-07 15:28] VITALS: BP 169/82; TEMP 98.4
[2021-04-08 08:39] LABS: Lyme IgG/IgM AB <0.91 ISR (0.00-0.90)
== END 2021-04-07 19:10 | disposition home or self-care (01) | DRG 872 ==
LOC: ERS 19:31 → T4-B 22:20
PROVIDERS: ADMIT Student in an Organized Health Care Education/Training Program; ATTEND Internal Medicine
PROC: 0R9 Upper Joints, Drainage (ICD-10-PCS; principal; 2021-04-05)
DX: A41.9 Sepsis, unspecified organism (principal); N17.9 Acute kidney failure, unspecified; E87.1 Hypo-osmolality and hyponatremia; Z20.822 Contact with and (suspected) exposure to COVID-19; L02.511 Cutaneous abscess of right hand; Q89.01 Asplenia (congenital); L03.011 Cellulitis of right finger; N18.9 Chronic kidney disease, unspecified; E78.5 Hyperlipidemia, unspecified; E78.00 Pure hypercholesterolemia, unspecified; I12.9 Hypertensive chronic kidney disease with stage 1 through stage 4 chronic kidney disease, or unspecified chronic kidney disease; Z79.899 Other long term (current) drug therapy; Z90.5 Acquired absence of kidney; Z90.81 Acquired absence of spleen; F41.9 Anxiety disorder, unspecified; F32.9 Major depressive disorder, single episode, unspecified; Z85.528 Personal history of other malignant neoplasm of kidney
CPT/HCPCS: 0240U; 36415; 71045; 80048; 80053; 80202; 81003; 81015; 83520; 83605; 84550; 84560; 85007; 85025; 85027; 85652; 86038; 86140; 86200; 86225; 86618; 87040; 87070; 87086; 87205; 96365; 96366; 96367; J0692; J1100; J2185; J2405; J2704; J3010; J3370; J3490; S0020

== ENCOUNTER 2021-08-11 15:29 | Outpatient (CLI) | payer MEDICARE, BC | END 2021-08-11 15:30 | disposition home or self-care (01) | LOC: BICCT 15:29 | PROVIDERS: ATTEND Urology | DX: C64.2 Malignant neoplasm of left kidney, except renal pelvis (principal); N18.9 Chronic kidney disease, unspecified; R91.1 Solitary pulmonary nodule; R91.8 Other nonspecific abnormal finding of lung field | CPT/HCPCS: 71250; 74176 ==

== ENCOUNTER 2022-08-10 09:10 | Outpatient (CLI) | payer MEDICARE, BC | END 2022-08-10 09:11 | disposition home or self-care (01) | LOC: BICULT 09:10 | PROVIDERS: ATTEND Urology | DX: C64.2 Malignant neoplasm of left kidney, except renal pelvis (principal); Z90.5 Acquired absence of kidney; Z12.5 Encounter for screening for malignant neoplasm of prostate; N40.1 Benign prostatic hyperplasia with lower urinary tract symptoms; R35.1 Nocturia; N18.9 Chronic kidney disease, unspecified | CPT/HCPCS: 71046; 76770; 80053; 81001; G0103; 36415 ==

== ENCOUNTER 2023-08-06 11:07 | Outpatient (CLI) | payer MEDICARE, BC | END 2023-08-06 11:08 | disposition home or self-care (01) | LOC: ULT 11:07 | PROVIDERS: ATTEND Urology | DX: Z12.5 Encounter for screening for malignant neoplasm of prostate (principal); C64.2 Malignant neoplasm of left kidney, except renal pelvis; N18.9 Chronic kidney disease, unspecified; Z90.5 Acquired absence of kidney | CPT/HCPCS: 36415; 71046; 76770; 80048; 81001; G0103 ==

== ENCOUNTER 2024-07-24 10:26 | Outpatient (CLI) | payer MEDICARE | END 2024-07-24 10:27 | disposition home or self-care (01) | LOC: BICULT 10:26 | PROVIDERS: ATTEND Urology | DX: C64.2 Malignant neoplasm of left kidney, except renal pelvis (principal); R91.1 Solitary pulmonary nodule | CPT/HCPCS: 71046; 76770 ==

== ENCOUNTER 2024-09-02 11:03 | Outpatient (CLI) | payer MEDICARE | END 2024-09-02 11:04 | disposition home or self-care (01) | LOC: BICCT 11:03 | PROVIDERS: ATTEND Urology | DX: C64.2 Malignant neoplasm of left kidney, except renal pelvis (principal) | CPT/HCPCS: 74176 ==

== ENCOUNTER 2025-09-29 13:42 | Outpatient (CLI) | payer MEDICARE | END 2025-09-29 13:43 | disposition home or self-care (01) | LOC: BICCT 13:42 | PROVIDERS: ATTEND Urology | DX: C64.2 Malignant neoplasm of left kidney, except renal pelvis (principal); N40.1 Benign prostatic hyperplasia with lower urinary tract symptoms; R39.14 Feeling of incomplete bladder emptying; R91.1 Solitary pulmonary nodule | CPT/HCPCS: 71046; 74176 ==

== ENCOUNTER 2025-09-29 15:01 | Outpatient (CLI) | payer MEDICARE | END 2025-09-29 15:02 | disposition home or self-care (01) | LOC: ULT 15:01 | PROVIDERS: ATTEND Urology | DX: C64.2 Malignant neoplasm of left kidney, except renal pelvis (principal); Z90.5 Acquired absence of kidney; N40.1 Benign prostatic hyperplasia with lower urinary tract symptoms; R39.14 Feeling of incomplete bladder emptying; R91.1 Solitary pulmonary nodule | CPT/HCPCS: 71046; 74176; 76770 ==